=== PATIENT | male | born 1945 | race Asian ===

== ENCOUNTER 2018-06-24 11:01 | Emergency (ER) | payer OTHER ==
[~2018-06-24] VITALS: Ht 170.2 cm; Wt 80.7 kg
[2018-06-24 11:03] VITALS: Ht 170.2 cm; Wt 80.7 kg
[2018-06-24 11:52] VITALS: BP 107/53
== END 2018-06-24 11:52 | disposition left against medical advice (07) ==
LOC: ED 11:01
DX: F10.20 Alcohol dependence, uncomplicated (principal); R55 Syncope and collapse; I10 Essential (primary) hypertension; E78.00 Pure hypercholesterolemia, unspecified